=== PATIENT | female | born 1980 | race Caucasian/White ===

== ENCOUNTER 2017-01-02 19:12 | Emergency (ER) | payer OTHER ==
[~2017-01-02] VITALS: Ht 160 cm; Wt 68.0 kg
--- NOTE | 2017-01-02 21:03 | ED HAND/WRIST INJURY COMPLAINT ---
History of Present Illness General Chief Complaint: Laceration Procedure Stated Complaint: LAC T LEFT THUMB FROM KNIFE Source: patient Exam Limitations: no limitations Vital Signs & Intake/Output Vital Signs & Intake/Output Vital Signs Date Time Temp Pulse Resp B/P Pulse O2 O2 Flow FiO2 Ox Delivery Rate 01/02 1926 99.1 77 16 154/90 99 Room Air Allergies Coded Allergies: No Known Allergies (01/02/17) Triage Note: RECEIVED 36 YO FEMALE C/O LACERATION TO LEFT THUMB. PT LACERATED TIP OF LEFT THUMB, MAY HAVE CUT A PIECE OFF, UNABLE TO VISUALIZE IN TRIAGE, DRESSING INTACT AND DRY. Triage Nurses Notes Reviewed? yes Occurred: just prior to arrival Duration: minute(s):, constant, continues in ED Timing: single episode today Severity: moderate, severe Pain/Injury Location: Left: 1st finger. Method of Injury: laceration No Modifying Factors: none : No Patient currently breastfeeds: No HPI: 36-year-old female comes into emergency room for further evaluation of laceration to left thumb. Patient was cutting chicken and cut the tip of her thumb. Associated bleeding. Tetanus shot up-to-date. Sharp throbbing pain. Continuous. Nonradiating. Denies any injury or associated symptoms anywhere else. Past History Travel History Traveled to [place] past 21 day No Medical History Any Pertinent Medical History? see below for history Neurological: NONE EENT: NONE Cardiovascular: hypertension Respiratory: NONE Gastrointestinal: NONE Hepatic: NONE Renal: NONE Musculoskeletal: NONE Psychiatric: NONE Endocrine: NONE Blood Disorders: NONE Cancer(s): NONE Surgical History Surgical History: non-contributory Psychosocial History What is your primary language Filipino Tobacco Use: Never used Family History Hx Contributory? No Review of Systems Review of Systems Constitutional: Reports: no symptoms. EENTM: Reports: no symptoms. Respiratory: Reports: no symptoms. Cardiovascular: Reports: no symptoms. GI: Reports: no symptoms. Genitourinary: Reports: no symptoms. Musculoskeletal: Reports: no symptoms. Skin: Reports: see HPI. Neurological/Psychological: Reports: no symptoms. Hematologic/Endocrine: Reports: see HPI. Immunologic/Allergic: Reports: no symptoms. All Other Systems: Reviewed and Negative Physical Exam Physical Exam General Appearance: well developed/nourished, mild distress Head: atraumatic Eyes: Bilateral: normal appearance. Ears, Nose, Throat: normal ENT inspection, hearing grossly normal Neck: normal inspection Cardiovascular/Respiratory: no respiratory distress Back: normal inspection Wrist Left: normal inspection Hand Left: 1st finger, avulsion of distal tip, associated bleeding, Hand Right: normal inspection Neurologic/Tendon: normal sensation, normal motor functions, normal tendon functions, responds to pain, no evidence tendon injury Skin: intact, normal color, warm/dry Progress Differential Diagnosis: fracture, paronychia, sprain, tenosynovitis, tendon laceration, soft tissue foreign body Plan of Care: Current Medications Sig/John Start time Last Medication Dose Stop Time Status Admin Oxycodone/ 1 TAB ONCE ONE 01/02 2115 UNVr Acetaminophen 01/03 2116 (Percocet) Departure Departure Disposition: HOME OR SELF CARE Condition: Stable Clinical Impression Primary Impression: Avulsion of skin of finger Referrals: SVETLANA MARINELLI MD (PCP/Family) Additional Instructions: In 3 days take outer dressing off. Soak finger in warm water and that dressing fall off on its own. Watch for signs of infection such as redness or discharge fever chills. Take Percocet for pain. Please go over all results of today's visit with your primary care doctor. Contact your primary care doctor to let them know you were here in the emergency room. There may be nonspecific findings which may not be related to your visit today here in the emergency room but may require further evaluation and chronic monitoring by your primary care doctor. If you had a laceration today the chance of foreign body always remains. You should follow-up with your primary care doctor for recheck in 3-5 days for a wound check. If you had an x-ray done there is a chance that a fracture could have been missed on initial read and you should follow-up with your primary care doctor for repeat x-rays if symptoms persist. If your blood pressure was elevated here in the emergency room please have rechecked by her primary care doctor within the next 48 hours by your primary care doctor. If you were prescribed a narcotic here in the emergency room or any type of controlled substances you're not allowed to drive while taking this medication or operate any type of heavy machinery. Narcotics can make you feel lightheaded dizziness nausea and can cause constipation. You may need to pickling tank operator a stool softener. Thank you for choosing [facility] emergency room. Please return to the emergency room immediately if you have any other concerns worsening of symptoms. Departure Forms: Customer Survey General Discharge Information Prescriptions: Current Visit Scripts Oxycodone HCl/Acetaminophen (Percocet 5-325 MG Tablet) 1-2 TAB PO Q6P PRN pain #12 TAB
[2017-01-02] MEDS ORDERED: PERCOCET 5-3251 EACH PO (21:19)
[2017-01-02 21:23] VITALS: BP 143/80
== END 2017-01-02 21:34 ==
LOC: ERH 19:12
DX: S61.012A Laceration without foreign body of left thumb without damage to nail, initial encounter (principal); W26.0XXA Contact with knife, initial encounter; Y93.G1 Activity, food preparation and clean up; Y92.9 Unspecified place or not applicable